=== PATIENT | female | born 1995 | race Caucasian/White ===

== ENCOUNTER 2021-12-20 15:42 | Emergency (ER) | payer OTHER, SELFPAY ==
[2021-12-20] VITALS (15 sets, daily range): BP systolic 117–144; BP diastolic 66–87; PULSE 56–68; RESP 11–19; TEMP 36.8; O2SAT 96–100
--- NOTE | ~2021-12-20 | XR_ITS ---
EXAMINATION: XR chest 2V 12/20/2021 16:26 INDICATION: Chest palpitations. Headache. Migraines. PROCEDURE: 2 view chest COMPARISON: No prior studies for comparison. FINDINGS: The lungs are clear. The cardiomediastinal silhouette is within normal limits. There are no pleural effusions. There is no pneumothorax suspected. IMPRESSION: 1: NO ACUTE CARDIOPULMONARY DISEASE. Reviewed, dictated and finalized at location B.
--- NOTE | 2021-12-20 15:48 | ECG_ITS ---
Measurements Intervals [place] Rate: 64 P: 0 NV: 127 QRS: 49 QRSD: 101 T: 8 QT: 379 QTc: 392 Interpretive Statements SINUS RHYTHM WITH SINUS ARRHYTHMIA BORDERLINE ST-T WAVE ABNORMALITY- INFERIOR LEADS BASELINE WANDER- V1 BORDERLINE ECG Electronically Signed On 12-20-2021 16:00:42 CDT by Garland Woodson D.O.
--- NOTE | 2021-12-20 16:15 | ED.HA ---
HPI - Headache General Chief Complaint: Headache Stated Complaint: heart palp, MORGAN Time Seen by Provider: 12/20/21 15:45 History of Present Illness HPI Narrative: 26-year-old female presents to the emergency room with complaints of headache for 3 days. Patient also states that she has experienced palpitations today. Patient states palpitations last for 1 to 2 seconds, and are not accompanied with any shortness of breath or difficulty breathing. Patient denies any drug use, excessive caffeine use. Patient states that patients occur sporadically, not associated with increased activity. Patient states her headache is constant behind her right eye, is not photophobic or photophobic. Patient states that her headache is like her previous headaches. States that she has taken Tylenol with little relief. Denies fever, neck pain. Related Data Home Medications Medication Instructions Recorded Confirmed No Home Medications 12/20/21 12/20/21 Allergies Allergy/AdvReac Type Severity Reaction Status Date / Time No Known Allergies Allergy Verified 12/20/21 15:43 Review of Systems Review of Systems: CONSTITUTIONAL: Denies fever, chills, or sweats. EYES: Denies visual changes, redness, or discharge. ENT: Denies rhinorrhea, congestion, sore throat, or otalgia. CARDIOVASCULAR: Reports palpitations RESPIRATORY: Denies cough or dyspnea. GASTROINTESTINAL: Denies abdominal pain, nausea, vomiting, or diarrhea. GENITOURINARY: Denies dysuria or hematuria. SKIN: Denies rash or itching. MUSCULOSKELETAL: Denies back pain, joint pain, or myalgia. NEUROLOGIC: Reports headache PSYCHIATRIC: Denies anxiety or depression. Exam Narrative: GENERAL: Well-appearing, well-nourished, and in no acute distress. HEAD: Normocephalic, atraumatic. EYES: PERRLA and EOMI. CHEST: Clear to auscultation. No respiratory distress. No wheezes rales or rhonchi HEART: Regular rate and rhythm. No murmur heard. Normal peripheral pulses. EXTREMITIES: Normal range of motion. No edema. SKIN: Warm, dry, no rash. NEURO: No focal deficits. Alert and oriented x3. PSYCH: Normal mood and affect. Course Vital Signs Vital signs: Vital Signs Temperature 36.8 C 12/20/21 15:45 Pulse Rate 66 12/20/21 15:45 Respiratory Rate 18 12/20/21 15:45 Blood Pressure 144/86 H 05/19/22 15:45 Pulse Oximetry 100 12/20/21 15:45 Temperature 36.8 C 12/20/21 15:45 Pulse Rate 66 12/20/21 15:45 Respiratory Rate 18 12/20/21 15:45 Blood Pressure 144/86 H 12/20/21 15:45 Pulse Oximetry 100 12/20/21 15:45 MDM - Headache MDM Narrative Medical decision making narrative: 26-year-old female presented to the emergency room complaints of intermittent palpitations that started today. Patient is also complaining of a headache, typical of her prior headaches. CBC and CMP were unremarkable. Troponin negative. D-dimer negative. Patient responded well to fluids, Toradol, Reglan, Solu-Medrol, and Benadryl. Discussed findings with patient. I explained to patient that her palpitations could be due to dehydration, stress, caffeine use. Will recommend patient follow-up with cardiology if her palpitations continue and are more consistent. Differential Diagnosis Differential diagnosis: Likely tension headache Medical Records Attestation: I reviewed the patient's medical records. Lab Data Attestation: I reviewed the patient's lab results. Imaging Data Radiologist's impression: Impressions Chest X-Ray 12/20/21 16:27 IMPRESSION: 1: NO ACUTE CARDIOPULMONARY DISEASE. ECG Data EKG #1: ECG completion date: 12/20/21 ECG completion time: 17:21 EKG Interpretation: normal rate, sinus rhythm, no ectopy, normal QRS and no acute changes Discharge Plan Discharge Clinical Impression: Heart palpitations Headache Qualifiers: Headache type: unspecified Headache chronicity pattern: unspecified pattern Intractability: not intractable Qualified
[2021-12-20] MEDS: KETOROLAC 30 MG/ML VIAL (*BKC) IV PUSH (16:29)
[2021-12-20] MEDS: METOCLOPRAMIDE HCL INJ 10 MG/2 ML VIAL IV PUSH (16:29)
[2021-12-20] MEDS: methylPREDNISolone SOD SUCC 125 MG VIAL IV PUSH (16:30)
[2021-12-20] MEDS: SODIUM CHLORIDE 0.9% IV 1,000 ML 999 ML IV CONT (16:30)
[2021-12-20 16:48] LABS: Appearance Urine Clear (Clear); Bilirubin Urine Negative (Negative); Blood Urine Negative (Negative); Color Urine Yellow (Yellow); Glucose Urine UA Negative (Negative); Ketones Urine Negative (Negative); Leukocyte Esterase Ur Negative LEU/UL (Negative); Nitrate Urine Negative (Negative); Protein Urine Negative (Negative); Specific Grav Ur 1.025 (1.001-1.035); Urobilinogen Urine 0.2 mg/dL (<2.0)
[2021-12-20 16:49] LABS: Basophils Absolute Auto 0.1 K/mm3 (0.0-0.1); Basophils Percent Auto 1.1 % (0.2-1.2); Eosinophils Absolute Auto 0.2 K/mm3 (0-0.3); Eosinophils Percent Auto 2.2 % (0-4.4); Hematocrit 42.5 % (37.0-47.0); Hemoglobin 14.3 g/dL (12.0-15.0); Immature Granulocyte Absolute 0.02 K/mm3 (0.00-0.031); Immature Granulocyte Percent A 0.3 % (0-0.5); Lymphocytes Percent Auto 30.7 % (18.3-44.2); Mean Corpuscular HGB Conc 33.6 g/dl (32-36); Mean Corpuscular Hemoglobin 32.8 pg (26-34); Mean Corpuscular Volume 97.5 fl (80-100); Mean Platelet Volume 9.3 fl (7.4-10.4); Monocytes Absolute Auto 0.5 K/mm3 (0.1-0.6); Monocytes Percent Auto 6.8 % (2.6-8.5); Neutrophils Absolute Auto 4.2 K/mm3 (1.3-6.7); Neutrophils Percent Auto 58.9 % (45.5-73.1); Platelet Count Result 329 k/mm3 (150-375); Red Blood Count 4.36 M/mm3 (4.2-5.4); Red Cell Distribution Width 11.7 % (11.5-14.5); White Blood Count 7.2 K/mm3 (4.5-10.0)
[2021-12-20 16:58] LABS: Add Urine Microscopic? NO
[2021-12-20 17:03] LABS: Alanine Aminotransferase 14 U/L (6-35); Albumin Level 4.5 g/dL (3.5-5.1); Alkaline Phosphatase 48 U/L (38-126); Anion Gap 8 mmol/L (8-16); Aspartate Amino Transferase 23 U/L (14-36); Bilirubin,Total 0.3 mg/dL (0.2-1.3); Blood Urea Nitrogen 22 mg/dL (7-17); Calcium 9.6 mg/dL (8.4-10.2); Carbon Dioxide 24 mmol/L (22-30); Chloride 105 mmol/L (98-107); Estimated CRCL calculation 110 ml/min; Estimated Glomerular Filt Rate > 60; Glucose 91 mg/dL (65-110); Potassium 4.1 mmol/L (3.4-5.0); Sodium 137 mmol/L (137-145)
[2021-12-20 17:11] LABS: D Dimer < 0.27 ug/mL (<0.48)
[2021-12-20 17:14] LABS: Troponin I < 0.012 ng/mL (0.000-0.034)
== END 2021-12-20 17:32 | disposition home or self-care (01) ==
PROVIDERS: Emergency Provider Nurse Practitioner Family; PCP Nurse Practitioner Family
DX: R51.9 Headache, unspecified (principal); R00.2 Palpitations; R94.31 Abnormal electrocardiogram [ECG] [EKG]
CPT/HCPCS: 36415; 71046; 80053; 81003; 84484; 85025; 85380; 93005; 96361; 96374; 96375; 99284; J1885; J2765; J2930; J7030